=== PATIENT | female | born 1985 | race Caucasian/White ===

== ENCOUNTER → 2019-01-25 | Outpatient (CLI) | payer OTHER ==
[~2019-01-25] MED LIST: ACET650SUP; BCP; BIRTH CONTROL; CIPR500 PO; CYCL10 PO; IBUP600 PO; MECL12.5 PO; NAPR500 PO; Norco 5-325 Ta1 EACH PO; OMEP20ER PO; PSEU120ER PO; RANI150 PO; RIZA10MLT; TRAM50 PO
[2019-01-26 14:07] LABS: HPV 16 Negative (Negative); HPV 18 Negative (Negative); HPV OTHER HR TYPES Positive (Negative)
== END | disposition home or self-care (01) ==
LOC: LAB SHORT 12:19 → LAB 12:19
PROVIDERS: Obstetrics & Gynecology Gynecology
DX: Z12.4 Encounter for screening for malignant neoplasm of cervix (principal)
CPT/HCPCS: 87624; 87625; G0123